=== PATIENT | female | born 1975 | race Caucasian/White ===

== ENCOUNTER 2020-06-20 11:24 | Observation (INO) | payer BC ==
[2020-06-20] MEDS ORDERED: ASPIRIN 81 MG PO STA (11:47)
[2020-06-20 12:06] LABS: Basophils # (A) 0.1 k/uL (0-0.2); Basophils % (A) 1 %; Eosinophils # (A) 0.3 k/uL (0-0.7); Eosinophils % (A) 4 %; HCT 47.4 % (34.0-46.0); HGB 16.1 gm/dL (11.4-16.0); Lymphocytes # (A) 2.2 k/uL (1.0-4.8); Lymphocytes % (A) 29 %; MCH 30.5 pg (25.0-35.0); MCHC 33.9 g/dL (31.0-37.0); MCV 89.8 fL (80.0-100.0); Mean Platelet Volume 9.2; Monocytes # (A) 0.3 k/uL (0-1.0); Monocytes % (A) 4 %; Neutrophils # (A) 4.6 k/uL (1.3-7.7); Neutrophils % (A) 62 %; Platelet Count 176 k/uL (150-450); RBC 5.28 m/uL (3.80-5.40); RDW 12.3 % (11.5-15.5); WBC 7.5 k/uL (3.8-10.6)
--- NOTE | 2020-06-20 12:12 | ED ---
Chest Pain HPI - General Chief Complaint: Chest Pain Stated Complaint: chest pain Time Seen by Provider: 06/20/20 11:47 Source: patient, RN notes reviewed Mode of arrival: ambulatory Limitations: no limitations - History of Present Illness Initial Comments: This a 44-year-old female presents emergency Department with chief complaint of a chest discomfort. Patient states that she started with some neck discomfort on the right which seems she felt like she just slept wrong with states that seemed to worsen tonight crosses across her chest and last that she started developing sharp stabbing left-sided chest pain no shortness of breath. Nothing really makes pain feel better or worse. Patient has no prior cardiac disease she is a smoker denies history of hypertension hyperlipidemia. Patient states she also has this weird neck sensation were she states it's difficult to swallow certain foods she has no difficulty swallowing liquids. - Related Data Home Medications Medication Instructions Recorded Confirmed No Known Home Medications 06/20/20 06/20/20 Allergies Allergy/AdvReac Type Severity Reaction Status Date / Time No Known Allergies Allergy Verified 06/20/20 12:33 Review of Systems ROS Statement: Those systems with pertinent positive or pertinent negative responses have been documented in the HPI. ROS Other: All systems not noted in ROS Statement are negative. EKG Findings - EKG Comments: EKG Findings:: EKG performed at 11:36 sinus rhythm rate of 80 WA 164 QRS 86 QT/QTC 380/438 Past Medical History Past Medical History: No Reported History History of Any Multi-Drug Resistant Organisms: None Reported Additional Past Surgical History / Comment(s): Keith jaimes. Past Psychological History: No Psychological Hx Reported Smoking Status: Current every day smoker Past Alcohol Use History: Occasional Past Drug Use History: None Reported General Exam Limitations: no limitations General appearance: alert, in no apparent distress Head exam: Present: atraumatic, normocephalic, normal inspection Eye exam: Present: normal appearance, PERRL, EOMI. Absent: scleral icterus, conjunctival injection, periorbital swelling ENT exam: Present: normal exam, normal oropharynx, mucous membranes moist, TM's normal bilaterally Neck exam: Present: normal inspection, full ROM. Absent: tenderness, meningismus, lymphadenopathy Respiratory exam: Present: normal lung sounds bilaterally. Absent: respiratory distress, wheezes, rales, rhonchi, stridor Cardiovascular Exam: Present: regular rate, normal rhythm, normal heart sounds. Absent: systolic murmur, diastolic murmur, rubs, gallop, clicks GI/Abdominal exam: Present: soft, normal bowel sounds. Absent: distended, tenderness, guarding, rebound, rigid Extremities exam: Absent: pedal edema, calf tenderness Neurological exam: Present: alert, oriented X3, CN II-XII intact Skin exam: Present: warm, dry, intact, normal color. Absent: rash Course Vital Signs 06/20/20 11:25 Temperature 98.3 F Pulse Rate 97 Respiratory 16 Rate Blood Pressure 126/79 O2 Sat by Pulse 97 Oximetry Chest Pain MDM - MDM 44-year-old presented for chest pain. EKG and labs do not show any acute moderate though patient's had some persistent left sided chest pain. Patient is also had associated neck discomfort. Patient will be admitted for cardiac rule out will have an echocardiogram, cardiology evaluation. Disposition Clinical Impression: Chest pain Disposition: ADMITTED IP TO THIS HOSP Condition: Fair Referrals: Lorenzo Adamson MD [Primary Care Provider] - 1-2 days
--- NOTE | 2020-06-20 12:14 | XR ---
EXAMINATION TYPE: XR chest 2V DATE OF EXAM: 06/20/2020 COMPARISON: NONE TECHNIQUE: PA and lateral views submitted. HISTORY: Chest pain FINDINGS: The lungs are clear and there is no pneumothorax, pleural effusion, or focal pneumonia. Coarsened in terstitium. Biapical pleural thickening. Hypertrophic and degenerative change of the spine. IMPRESSION: 1. Correlate for bronchitis or mild interstitial pneumonitis..
--- NOTE | 2020-06-20 12:15 | XR ---
EXAMINATION TYPE: XR soft tissue neck DATE OF EXAM: 06/20/2020 COMPARISON: None HISTORY: 44-year-old female with a pain TECHNIQUE: AP and lateral views FINDINGS: Epiglottis and prevertebral soft tissues are normal. There is mild anterior endplate spondylosis at C 6-C7. No retained radiopaque foreign body seen. No subglottic airway narrowing. The nasopharyngeal an d oropharyngeal airway appears patent. IMPRESSION: Patent airway. No prevertebral soft tissue swelling. Mild anterior osteoarthritic spurring at C6-C7.
[2020-06-20 12:17] LABS: ALT 21 U/L (4-34); AST 23 U/L (14-36); African American GFR (CKD) >90 (>60 ml/min/1.73 sqM); Albumin 4.5 g/dL (3.5-5.0); Alkaline Phosphatase 50 U/L (38-126); Anion Gap 9 mmol/L; Blood Urea Nitrogen 12 mg/dL (7-17); Calcium 9.5 mg/dL (8.4-10.2); Carbon Dioxide 26 mmol/L (22-30); Chloride 104 mmol/L (98-107); Glucose 100 mg/dL (74-99); Non-African American GFR(CKD) >90 (>60 ml/min/1.73 sqM); Potassium 4.2 mmol/L (3.5-5.1); Sodium 139 mmol/L (137-145); Total Bilirubin 0.7 mg/dL (0.2-1.3); Total Protein 7.6 g/dL (6.3-8.2)
[2020-06-20 12:27] LABS: D-Dimer 0.26 mg/L FEU (<0.60); INR 0.9 (<1.2); Partial Thromboplastin Time 24.3 sec (22.0-30.0)
[2020-06-20] MEDS ORDERED: HEPARIN SODIUM,PORCINE 5,000 UNIT/ML 1 ML VIAL IV PRN (13:14)
[2020-06-20] MEDS ORDERED: HEPARIN SODIUM,PORCINE 5,000 UNIT/ML 1 ML VIAL IV ONE (13:14)
[2020-06-20] MEDS ORDERED: NITROGLYCERIN SL TABS 0.4 MG TAB SUBLINGUAL PRN (13:14)
[2020-06-20] MEDS ORDERED: HEPARIN SOD,PORK IN 0.45% NACL 25,000 UNIT in 0.45% NACL 1 250ML.BAG IV SCH (13:15)
--- NOTE | 2020-06-20 14:32 | P.HPIM ---
History of Present Illness H&P Date: 06/20/20 Chief Complaint: Chest tightness This is a 44-year-old female with no significant past medical history who presented to the emergency room with chest tightness. Patient said that her symptoms started with some neck discomfort in the right neck and initially thought that she slept wrong but subsequently started having what she describes as chest tightness in the middle of her chest. She denies shortness of breath. No palpitation or diaphoresis. No radiation of her pain anywhere else. She otherwise feeling fairly well. She smoked half a pack of cigarettes per day. She denies any cardiac history. History of hypertension of hyperlipidemia. No premature coronary artery disease in the family Review of Systems Review of system: 14 points review of systems were obtained and were negative except to what were mentioned in the HPI. Past Medical History Past Medical History: No Reported History History of Any Multi-Drug Resistant Organisms: None Reported Additional Past Surgical History / Comment(s): Keith jaimes. Past Psychological History: No Psychological Hx Reported Smoking Status: Current every day smoker Past Alcohol Use History: Occasional Past Drug Use History: None Reported Medications and Allergies Home Medications Medication Instructions Recorded Confirmed Type No Known Home Medications 06/20/20 06/20/20 History Allergies Allergy/AdvReac Type Severity Reaction Status Date / Time No Known Allergies Allergy Verified 06/20/20 12:33 Physical Exam Vitals: Vital Signs Temp Pulse Resp BP Pulse Ox 06/20/20 13:16 72 18 106/80 99 06/20/20 11:25 98.3 F 97 16 126/79 97 Intake and Output 06/19/20 06/20/20 06/20/20 22:59 06:59 14:59 Other: Weight 83.915 kg General: The patient is awake and alert, in no distress Eye: there is normal conjunctiva bilaterally. Neck: The neck is supple, there is no JVD. Cardiovascular: Normal S1-S2, no S3-S4, no murmurs. Respiratory: Lungs clear to auscultation bilaterally Gastrointestinal: Abdomen is soft, nontender Musculoskeletal: There is no pedal edema. Neurological:. Speech is normal. Skin: Skin is warm and dry Results CBC & Chem 7: 06/20/20 11:52 06/20/20 11:52 Labs: Abnormal Lab Results - Last 24 Hours (Table) 06/20/20 06/20/20 Range/Units 11:52 11:52 Hgb 16.1 H (11.4-16.0) gm/dL Hct 47.4 H (34.0-46.0) % Glucose 100 H (74-99) mg/dL Assessment and Plan Assessment: 1. Chest pain, mostly atypical in nature. Twelve-lead EKG in the ER with no acute ischemic changes. Initial troponin is negative. D-dimer was normal. We will continue telemetry monitoring. Trend troponin. Cardiology consulted by ER staff. 2. Tobacco abuse: Counseled extensively to quit. Patient will be placed on observation. Check fasting lipid profile in the morning. Echocardiogram ordered.
[2020-06-20] MEDS ORDERED: INFLUENZA VACCINE (6 MOS+) 60 MCG/0.5 ML SYRINGE IM ONE (15:49)
[2020-06-21 02:37] VITALS: RESP 16
[2020-06-21 05:26] LABS: Mean Platelet Volume 9.3; Platelet Count 167 k/uL (150-450)
[2020-06-21 07:36] VITALS: BP 91/60; TEMP 97.6
[2020-06-21 07:37] VITALS: PULSE 66
[2020-06-21] MEDS ORDERED: ASPIRIN 325 MG TAB PO SCH (09:00)
[2020-06-21 09:33] LABS: Chol/HDL Ratio 3.3; LDL Cholesterol,Calculated 71.2 mg/dL (0.0-131.0); VLDL Calculation 13.8 mg/dL (5.00-40.00)
--- NOTE | 2020-06-21 09:35 | P.CRDCN ---
History of Present Illness History of present illness: HISTORY OF PRESENTING ILLNESS This is a pleasant 44-year-old female past medical history significant for chronic nicotine dependence. 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 We have been asked to see in consultation for chest pain. She states it started approximately 3 days ago with a discomfort in her neck. She had woken up feeling achy and thought possibly she slept wrong on her neck. However in the following 2 days she then started having discomfort in her shoulder on both sides but worse on the right and then yesterday when she was getting up for work she noticed a tight sensation in the midsternal region. The discomfort in the chest was associated with shortness of breath. She felt as though she was having a hard time taking in a deep breath and when she tried to deep breathe is when she felt a tightness in the chest. She denied associated palpitations, dizziness, nausea, vomiting, diaphoresis or cough. Her chest pain has subsided however she continues to have discomfort in the right shoulder. Pain in the chest is not reproducible. DIAGNOSTICS EKG reveals sinus mechanism heart rate of 80 mild nonspecific changes inferiorly. There is no old EKG for comparison. Telemetry tracings indicate sinus mechanism with no acute arrhythmias. Chest xray mild interstitial pneumonitis versus bronchitis right apical pleural thickening. Laboratory reviewed, WBC 7.5, hemoglobin 16.1, platelets 176, d-dimer 0.26, sodium 139, potassium 4.2, creatinine 0.73, magnesium 2.0, cardiac enzymes negat dipak 3 and and NTproBNP 22. She takes no daily cardiac medications. REVIEW OF SYSTEMS At the time of my exam: CONSTITUTIONAL: Denies fever or chills. CARDIOVASCULAR: Denies chest pain, shortness of breath, orthopnea, PND or palpitations. RESPIRATORY: Denies cough. GASTROINTESTINAL: Denies abdominal pain, diarrhea, constipation, nausea or vomiting. MUSCULOSKELETAL: Denies myalgias. NEUROLOGIC: Denies numbness, tingling, headacbe or weakness. ENDOCRINE: Denies fatigue, weight change, polydipsia or polyurina. GENITOURINARY: Denies burning, hematuria or urgency with micturation. HEMATOLOGIC: Denies history of anemia or bleeding. PHYSICAL EXAMINATION Blood pressure 91/60 heart rate 66 afebrile and maintaining oxygen saturation on room air. CONSTITUTIONAL: No apparent distress. HEENT: Head is normocephalic. Pupils are equal, round. Sclerae anicteric. Mucous membranes of the mouth are moist. No JVD. No carotid bruit. CHEST EXAMINATION: Lungs are clear to auscultation. No chest wall tenderness is noted on palpation or with deep breathing. HEART EXAMINATION: Regular rate and rhythm. S1, S2 heard. No murmurs, gallops or rub. ABDOMEN: Soft, nontender. Positive bowel sounds. EXTREMITIES: 2+ peripheral pulses, no lower extremity edema and no calf tenderness. NEUROLOGIC EXAMINATION: Patient is awake, alert and oriented x3. ASSESSMENT Chest pain Chronic nicotine dependence PLAN An acute coronary event has been ruled out. Pain is atypical for angina. Obtain 2-D echocardiogram and Doppler study to assess cardiac structure and function. Perform stress echocardiogram to assess for stress-induced cardiac ischemia. Recommend smoking cessation. If stress test is normal she may be discharged from a cardiac perspective. Consider pulmonary etiology for pain as it seems pleuritic in nature with an abnormal chest xray. Thank you kindly for this consultation. Nurse Practitioner note has been reviewed, I agree with a documented findings and plan of care. Patient was seen and examined. Past Medical History Past Medical History: No Reported History Additional Past Medical History / Comment(s): Occasional low back pain History of Any Multi-Drug Resistant Organisms: None Reported Past Surgical History: Section, Orthopedic Surgery Additional Past Surgical History / Comment(s): Panniculectomy, R knee arthroscopic surgery Past Anesthesia/Blood Transfusion Reactions: No Reported Reaction Smoking Status: Current every day smoker - Past Family History Father Family Medical History: No Reported History Additional Family Medical History / Comment(s): Father is healthy Mother Family Medical History: Vascular Disorder Additional Family Medical History / Comment(s): Mother has circulation problems. Medications and Allergies Home Medications Medication Instructions Recorded Confirmed Type No Known Home Medications 06/20/20 06/20/20 History Allergies Allergy/AdvReac Type Severity Reaction Status Date / Time No Known Allergies Allergy Verified 06/20/20 12:33 Physical Exam Vitals: Vital Signs Temp Pulse Pulse Resp BP BP Pulse Ox 06/21/20 07:32 66 16 06/21/20 07:00 97.6 F 63 16 91/60 95 06/21/20 02:00 98.1 F 66 16 108/71 95 06/20/20 20:00 98.1 F 63 18 108/73 95 06/20/20 15:49 16 06/20/20 15:41 97.9 F 58 L 16 102/72 99 06/20/20 15:11 98.2 F 66 18 107/70 99 06/20/20 13:16 72 18 106/80 99 06/20/20 11:25 98.3 F 97 16 126/79 97 Intake and Output 06/20/20 06/21/20 06/21/20 22:59 06:59 14:59 Intake Total 183.333 110.894 Balance 183.333 110.894 Intake: Intake, IV Titration 65.333 110.894 Amount Heparin Sod,Pork in 0.45% 65.333 110.894 NaCl 25,000 unit In 0.45 % NaCl 1 250ml.bag @ 11. 917 UNITS/KG/HR 10 mls/hr IV .Q24H [facility] Rx#: [id number] Oral 118 Other: Voiding Method Toilet Toilet # Voids 1 2 2 Weight 83.915 kg Results 06/21/20 05:15 06/20/20 11:52 Cardiac Enzymes 06/20/20 06/20/20 06/20/20 Range/Units 11:52 11:52 15:56 AST 23 (14-36) U/L Troponin I <0.012 <0.012 (0.000-0.034) ng/mL 06/20/20 Range/Units 18:52 AST (14-36) U/L Troponin I <0.012 (0.000-0.034) ng/mL Coagulation 06/20/20 06/20/20 06/21/20 Range/Units 11:52 18:52 01:21 PT 10.0 (9.0-12.0) sec APTT 24.3 38.8 H 53.0 H (22.0-30.0) sec 06/21/20 Range/Units 05:15 PT (9.0-12.0) sec APTT 64.8 H (22.0-30.0) sec CBC 06/20/20 06/21/20 Range/Units 11:52 05:15 WBC 7.5 (3.8-10.6) k/uL RBC 5.28 (3.80-5.40) m/uL Hgb 16.1 H (11.4-16.0) gm/dL Hct 47.4 H (34.0-46.0) % Plt Count 176 167 (150-450) k/uL Comprehensive Metabolic Panel 06/20/20 Range/Units 11:52 Sodium 139 (137-145) mmol/L Potassium 4.2 (3.5-5.1) mmol/L Chloride 104 (98-107) mmol/L Carbon Dioxide 26 (22-30) mmol/L BUN 12 (7-17) mg/dL Creatinine 0.73 (0.52-1.04) mg/dL Glucose 100 H (74-99) mg/dL Calcium 9.5 (8.4-10.2) mg/dL AST 23 (14-36) U/L ALT 21 (4-34) U/L Alkaline Phosphatase 50 (38-126) U/L Total Protein 7.6 (6.3-8.2) g/dL Albumin 4.5 (3.5-5.0) g/dL Current Medications Generic Name Dose Route Start Last Admin Trade Name Freq PRN Reason Stop Dose Admin Aspirin 325 mg 06/21/20 09:00 06/21/20 08:58 Aspirin 325 Mg Tab PO 325 mg DAILY GABO Administration Heparin Sodium (Porcine) 0 unit 06/20/20 13:14 06/20/20 20:22 Heparin Sodium,Porcine 5,000 Unit/Ml 1 Ml Vial IV 2,097 unit Q6HR PRN Administration Low PTT Protocol Nitroglycerin 0.4 mg 06/20/20 13:14 Nitroglycerin Sl Tabs 0.4 Mg Tab SUBLINGUAL Q5M PRN Chest Pain Intake and Output 06/20/20 06/21/20 06/21/20 22:59 06:59 14:59 Intake Total 183.333 110.894 Balance 183.333 110.894 Intake: Intake, IV Titration 65.333 110.894 Amount Heparin Sod,Pork in 0.45% 65.333 110.894 NaCl 25,000 unit In 0.45 % NaCl 1 250ml.bag @ 11. 917 UNITS/KG/HR 10 mls/hr IV .Q24H [facility] Rx#: [id number] Oral 118 Other: Voiding Method Toilet Toilet # Voids 1 2 2 Weight 83.915 kg 06/21/20 05:15 06/20/20 11:52
--- NOTE | 2020-06-21 12:06 | ECHOF ---
Referral Reason:chest pain MEASUREMENTS -------- HEIGHT: 165.1 cm WEIGHT: 83.9 kg BP: 108/71 RVIDd: 3.5 cm (< 3.3) IVSd: 1.3 cm (0.6 - 1.1) LVIDd: 3.7 cm (3.9 - 5.3) LVPWd: 1.5 cm (0.6 - 1.1) IVSs: 1.8 cm LVIDs: 2.6 cm LVPWs: 1.7 cm LAESV Index (A-L): 22.47 ml/m Ao Diam: 2.4 cm (2.0 - 3.7) AV Cusp: 1.6 cm (1.5 - 2.6) LA Diam: 3.7 cm (2.7 - 3.8) MV EXCURSION: 13.874 mm (> 18.000) MV EF SLOPE: 112 mm/s (70 - 150) EPSS: 0.2 cm MV E Marcell: 1.00 m/s MV DecT: 233 ms MV A Marcell: 0.62 m/s MV E/A Ratio: 1.60 RAP: 5.00 mmHg RVSP: 22.36 mmHg FINDINGS -------- Sinus rhythm. This was a technically adequate study. The left ventricular size is normal. There is mild concentric left ventricular hypertrophy. Overa ll left ventricular systolic function is normal with, an EF between 55 - 60 %. The diastolic fillin g pattern is normal for the age of the patient 11.79. The right ventricle is mildly enlarged. Normal LA size by volume 22+/-6 ml/m2. The right atrial size is normal. Interatrial and interventricular septum intact. The aortic valve is trileaflet, and appears structurally normal. No aortic stenosis or regurgitation. The mitral valve is normal. There is trace to mild mitral regurgitation. The tricuspid valve appears structurally normal. Mild tricuspid regurgitation present. There is n o evidence of pulmonary hypertension. The right ventricular systolic pressure, as measured by Doppl er, is 22.36mmHg. There is no pulmonic regurgitation present. The aortic root size is normal. The inferior vena cava is mildly dilated. There is no pericardial effusion. CONCLUSIONS -------- 1. There is mild concentric left ventricular hypertrophy. 2. Overall left ventricular systolic function is normal with, an EF between 55 - 60 %. 3. The right ventricle is mildly enlarged. 4. Normal LA size by volume 22+/-6 ml/m2. 5. The aortic valve is trileaflet, and appears structurally normal. No aortic stenosis or regurgitati on. 6. There is trace to mild mitral regurgitation. 7. Mild tricuspid regurgitation present. 8. The inferior vena cava is mildly dilated. 9. There is no pericardial effusion. [place]: Patricia Waldrop RDCS
--- NOTE | 2020-06-21 13:55 | P.DS ---
Providers Date of admission: 06/20/20 13:17 Expected date of discharge: 06/21/20 Attending physician: Ron Cardona Consults: 06/20/20 13:14 Consult Physician Urgent Consulting Provider: Johny Denis Consult Reason/Comments: chest pain Do you want consulting provider notified?: Yes Primary care physician: Lorenzo Adamson [facility] Course: 1. Chest pain, mostly atypical in nature. Twelve-lead EKG in the ER with no acute ischemic changes. Serial troponin negative. D-dimer was normal. Patient was seen and evaluated by cardiology. She underwent cardiac stress test that w as reported negative. 2. Tobacco abuse: Counseled extensively to quit. Patient will be discharged home in a stable condition. For further details about this hospitalization please refer to the electronic chart. Time spent on discharge > 30 minutes including counseling and coordination of care Patient Condition at Discharge: Fair Plan - Discharge Summary Discharge Rx Participant: No New Discharge Prescriptions: No Action No Known Home Medications Discharge Medication List No Known Home Medications 06/20/20 [History] Follow up Appointment(s)/Referral(s): Lorenzo Adamson MD [Primary Care Provider] - 1-2 days Discharge Disposition: HOME SELF-CARE
--- NOTE | 2020-06-21 14:29 | ECHOS ---
STRESS ECHOCARDIOGRAM LUMASON: N/A Vial INDICATIONS: Chest pain MEDICATIONS: BASELINE HEART RATE: 61 BASELINE BLOOD PRESSURE: 96/67 MAXIMUM HEART RATE: 155. MAXIMUM BLOOD PRESSURE: 136/77 85% MPHR: 150 100% MPHR: 177 METS: 11.7 MAXIMUM STAGE REACHED: 4 TOTAL EXERCISE TIME: 10 minutes 15 seconds CLINICAL INFORMATION: Baseline rhythm is sinus mechanism, rate 61, borderline right axis deviation Baseline blood pressure 96/67 mmHg. Patient exercised on Edgar protocol for 10 minute 15 seconds reaching peak rate 155 beats per minute which is equal to 91% maximum predicted heart rate. Peak blood pressure 136/77 mmHg. Test was terminated secondary to fatigue. There was no chest pain. Electrocardiograph monitoring revealed no evidence of diagnostic ischemic ST deviation. Baseline echocardiogram revealed normal wall motion. At peak exercise, there was normal wall motion augmentation with no hypokinesis or dyskinesis. CONCLUSION: 1. Good exercise tolerance with normal electrocardiographic response to exercise. 2. Normal stress echocardiogram with no evidence of stress-induced ischemia. MMODL / IJN: [id number] /
== END 2020-06-21 13:25 | disposition home or self-care (01) ==
LOC: EC 11:24 → 6NMEDSUR 13:17
PROVIDERS: ADMIT Internal Medicine; ATTEND Internal Medicine
DX: R07.89 Other chest pain (principal); R13.10 Dysphagia, unspecified; M54.2 Cervicalgia; F17.210 Nicotine dependence, cigarettes, uncomplicated; Z20.822 Contact with and (suspected) exposure to COVID-19; Z23 Encounter for immunization; Z98.890 Other specified postprocedural states; Z71.6 Tobacco abuse counseling; Z82.49 Family history of ischemic heart disease and other diseases of the circulatory system
CPT/HCPCS: 96376 ×2; 96366 ×3; 93005 ×2; 96365; 99285; 36415; 93306; 93351; 85379; 83880; 80061; 80053; 83735; 84484; 85025; 85049; 85610; 85730 ×2; 87635; 70360; 71046; 90686; G0378 ×2; G0008; J1644 ×2

== ENCOUNTER → 2024-02-15 | Outpatient (CLI) | payer BC ==
--- NOTE | 2024-02-15 10:09 | XR ---
EXAMINATION TYPE: XR foot complete RT DATE OF EXAM: 02/15/2024 COMPARISON: NONE HISTORY: Pain TECHNIQUE: Frontal, lateral and oblique images of the right ankle are obtained. COMPARISON: None. FINDINGS: There is no acute fracture/dislocation evident. The joint spaces appear within normal underwood its. The overlying soft tissue appears unremarkable. IMPRESSION: There is no acute fracture or dislocation seen. [facility], , 02/15/2024 10:06 AM
--- NOTE | 2024-02-15 10:53 | XR ---
EXAMINATION TYPE: XR ankle limited RT DATE OF EXAM: 02/15/2024 COMPARISON: NONE HISTORY: Pain TECHNIQUE: Frontal, lateral images of the right ankle are obtained. COMPARISON: None. FINDINGS: There is no acute fracture/dislocation evident. The joint spaces appear within normal underwood its. The overlying soft tissue appears unremarkable. IMPRESSION: There is no acute fracture or dislocation seen. [facility], , 02/15/2024 10:50 AM
== END | disposition home or self-care (01) ==
LOC: EDBD → RADXRMAIN 06:51
PROVIDERS: ATTEND Internal Medicine
DX: M25.571 Pain in right ankle and joints of right foot (principal)

== ENCOUNTER → 2024-04-15 | Outpatient (CLI) | payer BC ==
--- NOTE | 2024-04-18 11:30 | MM ---
Reason for Exam: Screening (asymptomatic). Last mammogram was performed 21 year(s) and 3 month(s) ago. Patient History: Menarche at age 16. First Full-Term at age 27. Maternal unspecified had breast cancer. Mother had breast cancer. Last menstrual period: 09/22/2014 Risk Values: Radha 5 year model risk: 1.6%. NCI Lifetime model risk: 16.1%. Prior Study Comparison: No prior studies available for comparison. Tissue Density: The breasts are heterogeneously dense, which may obscure small masses. Findings: Analyzed By CAD. Right breast: There is no suspicious group of microcalcifications or new suspicious mass. Left breast: There is no suspicious group of microcalcifications or new suspicious mass. Overall Assessment: Negative, BI-RAD 1 Management: Screening Mammogram of both breasts in [address] [facility] will attempt to contact patient to return for supplemental views and ultrasound if indicated. Patient should continue monthly self-breast exams. A clinical breast exam by your physician is recommended on an annual basis. This exam should not preclude additional follow-up of suspicious palpable abnormalities. Note on Radha scores and lifetime risk: 1. A Radha score greater than 3% is considered moderate risk. If this is the case, consider specialist referral to assess eligibility for a risk reducing agent. 2. If overall lifetime risk for the development of breast cancer is 20% or higher, the patient may qualify for future screening with alternating mammogram and breast MRI. [facility], , 04/18/2024 11:27 AM. Electronically signed and approved by: Nathaniel Lutz DO
== END | disposition home or self-care (01) ==
LOC: EDBD 07:30 → RADMAMWWP 07:35
PROVIDERS: ATTEND Internal Medicine
DX: Z12.31 Encounter for screening mammogram for malignant neoplasm of breast (principal); Z85.3 Personal history of malignant neoplasm of breast; Z80.3 Family history of malignant neoplasm of breast; R92.333 Mammographic heterogeneous density, bilateral breasts
CPT/HCPCS: 77063; 77067